=== PATIENT | female | born 2000 | race Caucasian/White ===

== ENCOUNTER 2022-03-21 23:23 | Emergency (ER) | payer OTHER, SELFPAY ==
[2022-03-21 23:26] VITALS: BP 153/91; PULSE 88; RESP 16; TEMP 36.6; O2SAT 100
--- NOTE | 2022-03-21 23:59 | ED.ANIMALBIT ---
HPI - Animal Bite General Chief Complaint: Animal Bite Stated Complaint: dog bite Right hand Time Seen by Provider: 03/21/22 23:30 History of Present Illness HPI narrative: 21-year-old female presenting with dog bite to palm of right hand, base of weakness but does have numbness in the finger. Dog is vaccinated. No injuries anywhere else. Related Data Allergies Allergy/AdvReac Type Severity Reaction Status Date / Time No Known Allergies Allergy Unverified 03/22/22 00:00 Review of Systems Review of Systems: M/S: No joint pain. SKIN: Lac to hand NEURO: Numbness to ring finger PMFSH Past Medical History Medical History (Updated 03/22/22 @ 00:39 by Ewa Apple MD) History of fracture as a child Social History Social History (Updated 03/22/22 @ 00:39 by Ewa Apple MD) Smoking status: Never smoker Exam Narrative: EXAMINATION OF ORGAN SYSTEMS/BODY AREAS: Constitutional: Vital signs per nursing GENERAL:[No acute distress, non-toxic appearing.] HEAD: Normal with no signs of head trauma. EYES: EOMI, conjunctiva normal ENT: Hearing grossly intact LUNGS: Nonlabored breathing. HEART: [Regular rate and rhythm] EXT: Normal range of motion, good strength SKIN: Lac to base of R ring finger NEURO: [Alert and oriented x 3. Tingling to R ring finger.] PSYCH: Normal affect Course Course Emergency Course: 21-year-old female presenting with dog bite to palm of right hand, vital stable, exam shows deep laceration with normal range of motion but numbness/tingling to the ring finger, case discussed with hand surgeon at [place] Dr. Hastings who recommends extensive irrigation, and 1 suture to hold the wound closed, and follow-up with him in clinic within 72 hours. His office will call the patient tomorrow morning and she is given antibiotics and stable for discharge at this time. Vital Signs Vital signs: Vital Signs Temperature 97.8 F 03/21/22 23:26 Pulse Rate 88 03/21/22 23:26 Respiratory Rate 16 03/21/22 23:26 Blood Pressure 153/91 H 03/21/22 23:26 Pulse Oximetry 100 03/21/22 23:26 Temperature 97.8 F 03/21/22 23:26 Pulse Rate 88 03/21/22 23:26 Respiratory Rate 16 03/21/22 23:26 Blood Pressure 153/91 H 03/21/22 23:26 Pulse Oximetry 100 03/21/22 23:26 Procedures Laceration Laceration 1: Date: 03/22/22 Time: 00:33 Site: hand Side (If applicable): right Size (cm): 3 Description: irregular Depth: simple, single layer Local Anesthetic: lidocaine 1% and with epi Amount of anesthesia used (mL): 3 Pre-repair: wound explored, irrigated, irrigated extensively and minor debridement ====== Skin Level ====== Skin layer closed with: nylon Size (cm): 4-0 Number of sutures: 1 Technique: simple, interrupted ====== Subcutaneous Layer ====== ====== Muscle Layer ====== ====== Tendon Layer ====== Discharge Plan Discharge Clinical Impression: Dog bite Qualifiers: Encounter type: initial encounter Qualified Code(s): W54.0XXA - Bitten by dog, initial encounter Instructions: Animal Bite (ED), Laceration (ED) Prescriptions: New amoxicillin-pot clavulanate 875-125 mg tablet 1 tablet PO Q12H Qty: 14 RF: 0 Follow-up/Referrals: Farhan Hastings [Other] - 1 Day Paloma,WILBUR Lechuga-BC [Primary Care Provider] -
[2022-03-22] MEDS: AMOXICILLIN/CLAVULANATE K 875-125 MG TAB 1 TABLET PO (00:01)
[2022-03-22] MEDS: TETANUS,DIPHTHERIA,AC PERTUSSIS ADULT (0.5 ML) BOOSTRIX IM (01:29)
[2022-03-22 01:37] VITALS: BP 135/67; PULSE 86; RESP 16; O2SAT 100
== END 2022-03-22 01:39 | disposition home or self-care (01) ==
PROVIDERS: Emergency Provider Emergency Medicine; PCP Nurse Practitioner Family
DX: S61.451A Open bite of right hand, initial encounter (principal); Z23 Encounter for immunization; W54.0XXA Bitten by dog, initial encounter
CPT/HCPCS: 12002; 90471; 90715; 99283; A9270

== ENCOUNTER 2025-08-19 16:52 | Emergency (ER) | payer OTHER, SELFPAY ==
--- NOTE | ~2025-08-19 | XR_ITS ---
XR chest 2V HOSTORY: swallowed fb COMPARISON:[ None] FINDINGS: Frontal and lateral views of the chest were obtained. The lungs are clear. The heart size is normal in size. Pulmonary vasculature is unremarkable. No radiopaque foreign body. Osseous structures are intact. IMPRESSION: No acute lung findings.] [ ] Reviewed, dictated and finalized at location S.
--- NOTE | ~2025-08-19 | XR_ITS ---
XR soft tissue neck INDICATION: Possible plastic pin in throat COMPARISON: None. FINDINGS: Frontal and lateral views of the soft tissues of the neck were performed. The airway is widely patent. The prevertebral soft tissues are unremarkable. There is no adenoidal or tonsillar hypertrophy. The epiglottis is unremarkable. There is no radiopaque foreign body. No bony abnormalities are seen. IMPRESSION: Normal soft tissue neck series. Reviewed, dictated and finalized at location S.
--- OUTSIDE RECORDS SUMMARY | 2025-08-19 16:55 | XMS_ITS | Clinical Summary ---
Author Organization [facility] Address [address] [place] [address] Care Team Providers Care Marketing Community Liaison Name Role Phone Tim De Dios NP Primary Care Provider Allergies No known active allergies Medications cyanocobalamin , vitamin B-12, (VITAMIN B-12 ORAL) Take by mouth Activ e vitamin D3-vitamin K2 25 mcg (1,000 unit)-90 mcg tablet,disinte grating Take by mouth Active Zepbound 5 mg/0.5 mL pen injector INJECT 1 PEN INJECTOR SUBCUTANEOUSLY ONCE A DAY 5 Active drospirenone-e stetrol (Nextstellis) 3 mg- 14.2 mg (28) tablet Take by mouth daily Active losartan (COZAAR) 50 mg tablet TAKE 1 TABLET BY MOUTH EVERY DAY 90 tablet 3 5 Active Active Problems Problem Noted Date Diagnosed Date Primary hypertension 04/16/2024 Assessment & Plan (12/17/2024 9:59 AM SURGERY AIDE): B/p goal <140/90 Today - 129/87 Continue - losartan Chronic stable condition. Assessment & Plan (06/22/2024 3:39 PM CDT): B/p well controlled but she states she sweats when she takes the lisinopril will change to losartan Assessment & Plan (04/16/2024 11:57 AM CDT): Start on medication - lisinopril for blood pressure control. Advised weight loss may help reduce her blood pressure Cautioned against taking lisinopril if becomes - she will need to stop the medication. Class 2 severe obesity due t o excess calories with serious comorbidity and body mass index (BMI) of 39.0 to 39.9 in adult 03/16/2024 Assessment & Plan (12/17/2024 9:59 AM SURGERY AIDE): Currently on Zepbound. Continue to work on increased activity and decreased caloric intake. Assessment & Plan (06/22/2024 3:40 PM CDT): Plan for weight loss is to decrease calories in diet and increase activity Assessment & Plan (04/16/2024 11:55 AM CDT): Plan for weight loss is to decrease calories in diet and increase activity Dog bite of right hand without complication 03/07 Resolved Problems Problem Noted Date Diagnosed Date Resolved Date Pilonidal cyst 02/15/2024 08/16/2024 Assessment & Plan (06/22/2024 3:39 PM CDT): Referral made to surgeon for removal of this cyst Encounters Date Type Department Care Team Description 07/12/2025 Telephone Family Care at [address] [address] Tim De Dios NP 07/11/2025 Telephone Family Care at [address] [address] Tim De Dios NP 07/09/2025 Results Follow-Up Family Care at [address] [address] Tim De Dios NP Hepatitis C antibody Blood 07/02/2025 1:00 PM CDT Office Visit Family Care at [address] [address] Tim De Dios NP Annual physical exam (Primary Dx); Primary hypertension; Class 2 severe obesity due to excess calories with serious comorbidity and body mass index (BMI) of 39.0 to 39.9 in adult (HCC); Encounter for hepatitis C screening test for low risk patient from Last 3 Months Immunizations Immunization Administration Dates Next Due DTaP 10/24/2000,01/20/2000,1999 ,1999 Hep B / HiB 01/20/2000 Hep B, Adolescent or Pediatric 10/24/2000,1999,01/20/2000 HiB 10/24/2000,01/06/2000,1999 ,1999 IPV 05/06/2000,1999,1999 Influenza, Unspecified 12/17/2024(Deferr ed: Patient Refused),12/17/2024(Deferred: Patient Refused) MMR 06/15/2005,08/19/2000,08/09/2000 Meningococcal MCV4P (Menactra) 07/15/2017 Pneumococcal Conjugate 7-Valent 10/24/2000,08/19 Tdap 03/22/2022,07/29/2011 Varicella 07/29/2011,08/19/2000,08/09/2000 Surgical History Surgery Date Site/Laterality Comments ARM SURGERY fracture PILONIDAL CYST / SINUS EXCISION 07/17/2024 Medical History Medical History Date Comments Pilonidal cyst Family History Medical History Relation Name Comments Cancer Father Diabetes Father Hypertension Father Diabetes Mother Hypertension Mother Kidney disease Mother Relation Name Status Comments Father Alive Mother Alive Social History Tobacco Use Types Packs/Day Years Used Date Smoking Tobacco: Never Smokeless Tobacco: Never Tobacco Cessation:Counseling Given: Not Answered AUDIT-C Answer Date Recorded Q1: How often do you have a drink containing alcohol? Monthly or less 07/17/2024 Q2: How many drinks containi ng alcohol do you have on a typical day when you are drinking? Patient does not drink Q3: How often do you have si x or more drinks on one occasion? Never 07/17/2024 PHQ-2 Answer Date Recorded PHQ-2 Total Score (If total score is 3 or more points, staff should administer the PHQ-9) 0 07/02/2025 PHQ-9 Answer Date Recorded PHQ-9 Total Score 0 04/16/2024 Personal Safety Answer Date Recorded Have you ever been in or are you currently in a harmful physical or emotional relationship or is someone making you feel afraid or unsafe? Denies 07/17/2024 Comments No Sex and Gender Information Value Date Recorded Sex Assigned at Not on file Legal Sex Female 12:04 AM CDT Gender Identity Not on file Sexual Orientation Not on file Obstetrics History Last Filed Vital Signs Vital Sign Reading Time Taken Comments Blood Pressure 134/87 07/02/2025 12:54 PM CDT Pulse 71 07/02/2025 12:54 PM CDT Temperature 36.4 C (97.5 F) 08/07/2024 2:20 PM CDT Respiratory Rate 18 07/17/2024 10:29 AM CDT Oxygen Saturation 99% 07/02/2025 12:54 PM CDT Inhaled Oxygen Concentration - - Weight 107 kg (235 lb 12.8 oz) 07/02/2025 12:54 PM CDT Height 165.1 cm (5' 5) 07/02/2025 12:54 PM CDT Body Mass Index 39.24 07/02/2025 12:54 PM CDT Plan of Treatment Health Maintenance Due Date Last Done Comments Cervical Cancer Screening 1999 HPV Vaccines (1 - 3-dose series) 2014 Influenza Vaccine (#1) 2025 Depression Screening 07/02/2026 07/02/2025, 04/16/2024, 04/16/2024 Regular Well Visit/Exam 18-64 07/02/2026 07/02/2025, 04/16/2024 DTaP/Tdap/Td Vaccine (7 - Td or Tdap) 03/22/2032 03/22/2022, 07/29/2011, 10/24/2000, Additional history exists Hepatitis B Screening Completed 10/24/2000 , 05/06/2000, 01/20/2000, Additional history exists Pneumococcal vaccine <65 Completed 10/24/2000, 08/07 Varicella Vaccines Completed 07/29/2011, 1 , 08/09/2000 Hepatitis C Screening Completed 07/04/2025 Procedures Procedure Name Priority Date/Time Associated Diagnosis Comments VITAMIN B12 Routine 07/04/2025 8:23 AM CDT Annual physical exam Primary hypertension Encounter for hepatitis C screening test for low risk patient VITAMIN D 25 HYDROXY Routine 07/04/2025 8:23 AM CDT Annual physical exam Primary hypertension Encounter for hepatitis C screening test for low risk patient TSH Routine 07/04/2025 8:23 AM CDT Annual physical exam Primary hypertension Encounter for hepatitis C screening test for low risk patient LIPID PANEL Routine 07/04/2025 8:23 AM CDT Annual physical exam Primary hypertension Encounter for hepatitis C screening test for low risk patient COMPREHENSIVE METABOLIC PANEL Routine 07/04/2025 8:23 AM CDT Annual physical exam Primary hypertension Encounter for hepatitis C screening test for low risk patient CBC WITH AUTO DIFFERENTIAL Routine 07/04/2025 8:23 AM CDT Annual physical exam Primary hypertension Encounter for hepatitis C screening test for low risk patient HEPATITIS C ANTIBODY Routine 07/04/2025 8:23 AM CDT Annual physical exam Primary hypertension Encounter for hepatitis C screening test for low risk patient from Last 3 Months Results * (ABNORMAL) CBC with auto differential (07/04/2025 8:23 AM CDT) Pathologist [facility] [place] WBC 10.3 3.8 - 10.8 Thousand/u L [facility] RBC, POC 4.04 3.80 - 5.10 Million/uL [facility] Hgb 11.2(L) 11.7 - 15.5 g/dL [facility] Hct 35.5 35.0 - 45.0 % [facility] MCV 87.9 80.0 - 100.0 fL [facility] MCH 27.7 27.0 - 33.0 pg [facility] MCHC 31.5(L) 32.0 - 36.0 g/dL [facility] Comment: For adults, a slight decrease in the calculated MCHC value (in the range of 30 to 32 g/dL) is most likely not clinically significant; however, it should be interpreted with caution in correlation with other red cell parameters and the patient's clinical condition. Rdw 13.4 11.0 - 15.0 % [facility] Platelets 309 140 - 400 Thousand/u L [facility] MPV 10.8 7.5 - 12.5 fL [facility] Neutrophils, abs 7,354 1,500 - 7,800 cells/uL [facility] Lymphocytes, abs 2,369 850 - 3,900 cells/uL [facility] Monocyte abs 443 200 - 950 cells/uL [facility] Eosinophils, abs 113 15 - 500 cells/uL [facility] Basophils, abs 21 0 - 200 cells/uL [facility] Neutrophils 71.4 % [facility] Lymphocyte pct 23.0 % [facility] Monocytes 4.3 % [facility] Eosinophils 1.1 % [facility] Basophils 0.2 % [facility] Blood 07/04/2025 8:23 AM CDT 07/04/2025 8:24 AM CDT Narrative [facility] - 07/05/2025 5:06 AM CDT FASTING:NO FASTING: NO Tim De Dios SENIOR PROJECT COORDINATOR LAB BLOOD ORDERABLES Final Re sult [facility] [address] [place] [address] * Hepatitis C antibody Blood (07/04/2025 8:23 AM CDT) Hep C Ab NON-REACTI VE NON-REACT GONZÁLEZ [facility] Comment: HCV antibody was non-reactive. There is no laboratory evidence of HCV infection. In most cases, no further action is required. However, if recent HCV exposure is suspected, a test for HCV RNA (test code 44891) is suggested. For additional information please refer to http://education.Synqera/faq/GAB23y6 (This link is being provided for informational/ educational purposes only.) Blood 07/04/2025 8:23 AM CDT 07/04/2025 8:24 AM CDT Narrative [facility] - 07/05/2025 5:06 AM CDT FASTING:NO FASTING: NO Tim De Dios SENIOR PROJECT COORDINATOR LAB MICROBIOLOGY - GENERAL OR DERABLES Final Result Performing Organization Address [facility] Co de Phone Number [facility] [address] [place] [address] * Vitamin D 25 hydroxy (07/04/2025 8:23 AM CDT) Vitamin D 25-OH 60 30 - 100 ng/mL [facility] Comment: Vitamin D Status 25-OH Vitamin D: Deficiency: <20 ng/mL Insufficiency: 20 - 29 ng/mL Optimal: > or = 30 ng/mL For 25-OH Vitamin D testing on patients on D2-supplementation and patients for whom quantitation of D2 and D3 fractions is required, the Quest[facility]ure[facility](TM) 25-OH VIT D, (D2,D3), LC/MS/MS is recommended: order code [id number] (patients >2yrs). See Note 1 Note 1 For additional information, please refer to http://education.Nurigene/faq/RWQ776 (This link is being provided for informational/ educational purposes only.) Blood 07/04/2025 8:23 AM CDT 07/04/2025 8:24 AM CDT Narrative [facility] - 07/05/2025 5:06 AM CDT FASTING:NO FASTING: NO Tim De Dios SENIOR PROJECT COORDINATOR LAB BLOOD ORDERABLES Final Re sult Performing Organization Address [facility]/ZIP Co de Phone Number [facility] [address] [place] [address] * TSH (07/04/2025 8:23 AM CDT) TSH 1.75 mIU/L [facility] Comment: Reference Range > or = 20 Years 0.40-4.50 Ranges First trimester 0.26-2.66 Second trimester 0.55-2.73 Third trimester 0.43-2.91 Blood 07/04/2025 8:23 AM CDT 07/04/2025 8:24 AM CDT Narrative [facility] - 07/05/2025 5:06 AM CDT FASTING:NO FASTING: NO Tim De Dios SENIOR PROJECT COORDINATOR LAB BLOOD ORDERABLES Final Re sult Performing Organization Address [facility] Co de Phone Number [facility] [address] [place] [address] * Vitamin B12 (07/04/2025 8:23 AM CDT) Vitamin B12 796 200 - 1,100 pg/mL [facility] Blood 07/04/2025 8:23 AM CDT 07/04/2025 8:24 AM CDT Narrative [facility] - 07/05/2025 5:06 AM CDT FASTING:NO FASTING: NO Tim De Dios SENIOR PROJECT COORDINATOR LAB BLOOD ORDERABLES Final Re sult Performing Organization Address [facility] Co de Phone Number [facility] [address] [place] [address] * (ABNORMAL) Lipid panel (07/04/2025 8:23 AM CDT) Cholesterol 198 <200 mg/dL [facility] HDL 38(L) > OR = 50 mg/dL [facility] Triglycerides 97 <150 mg/dL [facility] LDL 139(H) mg/dL (calc) [facility] Comment: Reference range: <100 Desirable range <100 mg/dL for primary prevention; <70 mg/dL for patients with CHD or diabetic patients with > or = 2 CHD risk factors. LDL-C is now calculated using the Trav calculation, which is a validated novel method providing better accuracy than the Friedewald equation in the estimation of LDL-C. Yfn CAMPBELL et al. RONY. 2013;310(19): 1329-1664 (http://education.Nurigene/faq/DLF832) Chol/HDL ratio 5.2(H) <5.0 (calc) [facility] Non-HDL, (LDL+VLDL) 160(H) <130 mg/dL (calc) [facility] Comment: For patients with diabetes plus 1 major ASCVD risk factor, treating to a non-HDL-C goal of <100 mg/dL (LDL-C of <70 mg/dL) is considered a therapeutic option. Blood 07/04/2025 8:23 AM CDT 07/04/2025 8:24 AM CDT Narrative [facility] - 07/05/2025 5:06 AM CDT FASTING:NO FASTING: NO us Tim De Dios NP LAB BLOOD ORDERABLES Final Re sult [facility] [address] [place] [address] * Comprehensive metabolic panel (07/04/2025 8:23 AM CDT) Pathologist [facility] [place] Glucose 88 65 - 139 mg/dL [facility] Comment: Non-fasting reference interval BUN 13 7 - 25 mg/dL [facility] Creatinine 0.77 0.50 - 0.96 mg/dL [facility] eGFR 110 > OR = 60 mL/min/1.7 3m2 [facility] BUN/creat ratio SEE NOTE: 6 - 22 (calc) [facility] Comment: Not Reported: BUN and Creatinine are within reference range. Sodium 139 135 - 146 mmol/L [facility] Potassium, pl 4.1 3.5 - 5.3 mmol/L [facility] Chloride 101 98 - 110 mmol/L [facility] CO2 31 20 - 32 mmol/L [facility] Calcium 9.5 8.6 - 10.2 mg/dL [facility] Protein, sr 7.3 6.1 - 8.1 g/dL [facility] Albumin 4.4 3.6 - 5.1 g/dL [facility] GLOBULIN 2.9 1.9 - 3.7 g/dL (calc) [facility] Alb/glob ratio 1.5 1.0 - 2.5 (calc) [facility] Bilirubin, total 0.5 0.2 - 1.2 mg/dL [facility] Alk phos 55 31 - 125 U/L [facility] AST 13 10 - 30 U/L [facility] ALT (SGPT) 10 6 - 29 U/L [facility] Blood 07/04/2025 8:23 AM CDT 07/04/2025 8:24 AM CDT Narrative [facility] - 07/05/2025 5:06 AM CDT FASTING:NO FASTING: NO us Tim De Dios SENIOR PROJECT COORDINATOR LAB BLOOD ORDERABLES Final Re sult [facility] [address] [place] [address] from Last 3 Months Insurance 4[employer]ATION GENERIC WORKERS COMPENSATION GENERIC Care Teams Marketing Community Liaison Relationship Specialty [place] [address] [place] [address] PCP - General Family Medicine 04/16/24
--- OUTSIDE RECORDS SUMMARY | 2025-08-19 16:55 | XMS_ITS | Encounter Summary ---
Author Organization [facility] Address [address] [place] [address] Care Team Providers Care Cafe Associate Name Role Phone Tim De Dios NP Primary Care Provider [phone] Encounter Details Date Type Department Care Team (Late st Contact Info) Description 07/09/2025 Results Follow-Up Family Care at [address] [address] Tim De Dios NP [address] [place] [address] [address] Hepatitis C antibody Blood Social History Tobacco Use Types Packs/Day Years Used Date Smoking Tobacco: Never Smokeless Tobacco: Never AUDIT-C Answer Date Recorded Q1: How often [...] on file Sexual Orientation Not on file documented as of this encounter Plan of Treatment Not on file documented as of this encounter Visit Diagnoses Not on filedocumented in this encounter Care Teams Cafe Associate Relationship Specialty [place] [address] [address] [facility] [address] [facility] [address] [place] [address] PCP - General Family Medicine 04/16/24 documented as of this encounter
[2025-08-19 17:02] VITALS: BP 135/79; PULSE 83; RESP 18; TEMP 36.7; O2SAT 100
--- NOTE | 2025-08-19 22:05 | ED_ITS ---
HPI - Skin/Abscess/Foreign Bdy General Chief complaint: Skin/Abscess/Foreign Body Stated complaint: swallowed plastic safety pin Time Seen by Provider: 08/19/25 21:55 History of Present Illness HPI narrative: Patient is a 25-year-old female who presents to the ER after swallowi ng a plastic safety pin. She reports she was crocheting and put the safety pin in her mouth. Patient reports she accidentally swallowed it. She reports she coughed a lot afterwards and may have coughed a safety pin back up but she was unable to locate it. Patient endorses mild irritated throat but denies any abdominal pain, difficulty swelling secretions, or shortness of breath. She denies any other medical history relevant to this ER visit. Related Data Allergies Allergy/AdvReac Type Severity Reaction Status Date / Time No Known Allergies Allergy Unverified 03/22/22 00:00 Review of Systems Review of Systems: All systems reviewed & are unremarkable except as noted in HPI and below PMFSH Past Medical History Medical History History of fracture as a child Social History Social History Smoking status: Never smoker Exam Narrative: GENERAL: Well appearing, well-nourished, non-toxic, in no acute distress. HEAD: Normocephalic, atraumatic. NECK: Supple. No adenopathy, no masses. RESPIRATORY: Airway patent, respirations nonlabored. Clear to auscultation bilaterally, no rales, rhonchi, wheezing. CARDIOVASCULAR: Regular rate and rhythm without murmurs, rubs, or gallops. Peripheral pulses 2+ and equal bilaterally. ABDOMINAL: Soft, nontender, nondistended, no hepatosplenomegaly. Normoactive BS. MUSCULOSKELETAL: Moves all extremities. Strength/ROM intact without gross deformities. SKIN: Warm, dry, normal color. No rashes. NEURO: A&O X3. Speech clear. Cranial nerves II-XII intact. No ataxic movements. PSYCHIATRIC: Appropriate mood and affect. Normal interaction. Course Vital Signs Vital signs: Vital Signs Temperature 36.7 C 08/19/25 17:02 Pulse Rate 83 08/19/25 17:02 Respiratory Rate 18 08/19/25 17:02 Blood Pressure 135/79 08/19/25 17:02 Pulse Oximetry 100 08/19/25 17:02 Oxygen Delivery Room Air 08/19/25 17:02 Temperature 36.7 C 08/19/25 17:02 Pulse Rate 83 08/19/25 17:02 Respiratory Rate 18 08/19/25 17:02 Blood Pressure 135/79 08/19/25 17:02 Pulse Oximetry 100 08/19/25 17:02 Oxygen Delivery Room Air 08/19/25 17:02 MDM - Skin/Abscess/Foreign Bdy MDM Narrative Medical decision making narrative: Patient is a 25-year-old female who presents to the ER after swallowing a plastic safety pin. She reports she was crocheting and put the safety pin in her mouth. Patient reports she accidentally swallowed it. She reports she coughed a lot afterwards and may have coughed a safety pin back up but she was unable to locate it. Patient endorses mild irritated throat but denies any abdominal pain, difficulty swelling secretions, or shortness of breath. She denies any other medical history relevant to this ER visit. Labs Ordered: None necessary Imaging Ordered: soft tissue XR, chest x-ray Results: Patient's soft tissue x-ray and chest x-ray were negative. Diagnosis: Her soft tissue x-ray and chest x-ray were negative for any acute abnormalities. Patient Education/Shared MDM: Results of imaging shared with patient. She continues to deny any pain or discomfort. Patient strongly advised to maintain hydration status upon discharge and follow-up with her PCP as needed. She will be discharged home with no new prescriptions. Strict return precautions provided. Patient verbalized understanding and is in agreement with plan. Vital signs stable at time of discharge. All questions answered. Differential Diagnosis Differential diagnosis: Likely other (Foreign object in airway, foreign object in abdomen, respiratory distress) Imaging Data Attestation: I personally reviewed and interpreted this imaging study as follows: Radiologist's impression: Impressions Chest X-Ray 08/19/25 19:16 IMPRESSION: No acute lung findings.] [ ] Soft Tissue Neck X-Ray 08/19/25 20:53 IMPRESSION: Normal soft tissue neck series. Discharge Plan Discharge Clinical Impression: Swallowed foreign body Patient Disposition: Home Condition: Stable Instructions: Antibiotic Form, Foreign Body Ingestion (ED) Additional Instructions: Please return to the ER with any worsening symptoms. Follow-up with primary care provider as needed. Watch for the foreign object to come out in your stool. Patient Language: Upper Sorbian Prescriptions: No Action amoxicillin-pot clavulanate 875-125 mg tablet 1 tablet PO Q12H Qty: 14 0RF Follow-up/Referrals: PHYSICIAN NOT ON STAFF,NONSTAFF [Non-Staff] Time of Disposition: 22:52
--- OUTSIDE RECORDS SUMMARY | 2025-08-19 22:11 | XMS_ITS | Encounter Summary ---
Author Organization [facility] Healthcare Address [address] [place] [address] Care Team Providers Care Balance Screwhead Polisher Name Role Phone Tim De Dios NP Primary Care Provider [phone] Encounter Details Date Type Department Care Team (Late st Contact Info) Description 07/09/2025 Results Follow-Up Family Care at [address] [id number] Tim De Dios NP [address] [place] [address] [address] Hepatitis C antibody Blood Social [...] on filedocumented in this encounter Care Teams Balance Screwhead Polisher Relationship Specialty [place] [address] [address] [facility] [address] [facility] [address] [place] [address] PCP - General Family Medicine 04/16/24 documented as of this encounter
[2025-08-19 23:05] VITALS: BP 128/74; PULSE 82; RESP 16; TEMP 36.9; O2SAT 100
== END 2025-08-19 23:06 | disposition home or self-care (01) ==
PROVIDERS: Emergency Provider Registered Nurse
DX: T18.9XXA Foreign body of alimentary tract, part unspecified, initial encounter (principal); W44.B9XA Other plastic object entering into or through a natural orifice, initial encounter
CPT/HCPCS: 70360; 71046; 99283